=== PATIENT | male | born 1955 | race Hispanic/Latino ===

== ENCOUNTER → 2020-06-17 | Day surgery (SDC) | payer OTHER ==
[2020-06-11 10:43] LABS: HEMATOCRIT 42.3 % (38.2-49.6); HEMOGLOBIN 14.6 g/dL (14.0-18.0)
[2020-06-11 11:06] LABS: ANION GAP 12.4 mmol/L (8-16); BLOOD UREA NITROGEN 6 mg/dL (7-26); BUN/CREATININE RATIO 7 (6-25); CALCIUM 9.5 mg/dL (8.4-10.2); CARBON DIOXIDE 28 mmol/L (22-29); CHLORIDE 105 mmol/L (98-107); CREATININE, SERUM 0.83 mg/dL (0.72-1.25); EST GLOMERULAR FILTRATION RATE > 60 ML/MIN (60-); GLUCOSE 110 mg/dL (74-118); POTASSIUM 4.4 mmol/L (3.5-5.1); SODIUM 141 mmol/L (136-145)
[~2020-06-17] MED LIST: BALANCED SALT SOLN (OPTH) 15 ML BTL IO ONE; BUPIVACAINE HC 0.75% PF 10ML VIAL INJ ONE; CHONDR SU A NA/HYALUR SOD 1 EACH KIT IO ONE; CYCLOPENTOLATE HCL 2% OPTH SOLN 2 ML BTL OP ONE; EPINEPHRINE HCL 1:1000 1ML 1 MG/ML AMP ONE; GATIFLOXACIN(OPTH) 5 ML LIQD ONE; LIDOCAINE 2% /EPINEPHRINE 20 ML SDV INJ ONE; LIDOCAINE HCL 2% LOCAL INJ 5 ML SDV VIAL INJ ONE; LIDOCAINE HCL-PF 4% 40 MG/1 ML 5ML AMP ONE; LISINOPRIL2.5 MG PO; METFORMIN HCL850 MG PO; PHENYLEPHRINE HCL 2 ML DROPS ONE; PILOCARPINE HCL(OPTH) 15 ML LIQD ONE; POVIDONE IODINE 5% (OPTH) 30 ML BTL ONE; PROPOFOL IV EMULSION 10 MG/ML 20 ML VIAL ONE; TOBRAMYCIN/DEXAMETHASONE(OPTH) 3.5 GM TUBE ONE
[2020-06-17 10:45] VITALS: BP 138/80
== END | disposition home or self-care (01) ==
LOC: OR 05:53
PROVIDERS: ATTEND Ophthalmology
DX: H25.11 Age-related nuclear cataract, right eye (principal); E11.9 Type 2 diabetes mellitus without complications; I10 Essential (primary) hypertension; Z01.810 Encounter for preprocedural cardiovascular examination; Z01.812 Encounter for preprocedural laboratory examination; Z11.59 Encounter for screening for other viral diseases; Z79.84 Long term (current) use of oral hypoglycemic drugs
CPT/HCPCS: 36415 ×2; 66982; 80048; 82948; 85014; 85018; 93005; J0171; J2001 ×2; J2704; U0002; V2632

== ENCOUNTER → 2020-08-12 | Day surgery (SDC) | payer OTHER ==
[2020-08-09 09:39] LABS: HEMATOCRIT 44.1 % (38.2-49.6); HEMOGLOBIN 15.2 g/dL (14.0-18.0)
[2020-08-09 09:57] LABS: ANION GAP 13.9 mmol/L (8-16); BLOOD UREA NITROGEN 7 mg/dL (7-26); BUN/CREATININE RATIO 9 (6-25); CALCIUM 9.3 mg/dL (8.4-10.2); CARBON DIOXIDE 25 mmol/L (22-29); CHLORIDE 105 mmol/L (98-107); CREATININE, SERUM 0.79 mg/dL (0.72-1.25); EST GLOMERULAR FILTRATION RATE > 60 ML/MIN (60-); GLUCOSE 96 mg/dL (74-118); POTASSIUM 3.9 mmol/L (3.5-5.1); SODIUM 140 mmol/L (136-145)
[~2020-08-12] MED LIST changes: -CHONDR SU A NA/HYALUR SOD 1 EACH KIT IO ONE; +MIDAZOLAM HCL 2 MG/2 ML VIAL ONE
[2020-08-12 12:26] VITALS: BP 126/73
--- NOTE | 2020-08-12 19:43 | Operative Report ---
DATE OF PROCEDURE: 08/12/2020 SURGEON: Jadiel Arias MD PREOPERATIVE DIAGNOSIS: Dense cataract, left eye. POSTOPERATIVE DIAGNOSIS: Dense cataract, left eye. PROCEDURES: Phacoemulsification of cataract, left eye with insertion of foldable posterior chamber lens into ciliary sulcus, anterior vitrectomy. ANESTHESIOLOGIST: Dr. Carrasco. ANESTHESIA: Local Versed and Diprivan. PROCEDURE IN DETAIL: The patient was brought to [facility] as an outpatient and dilated with 1% cyclogyl and 2.5% [place]-Synephrine. An intravenous cannula with Ringers lactate was started in preop. The patient was taken to the surgical suite. Then, 1-2 mg of Versed and Diprivan were given intravenously. After adequate sedation, a 50% mixture of 2% Xylocaine with epinephrine and 0.75% Marcaine was given as a retrobulbar block. retrobulbar anesthesia and akinesia were obtained. The patient was then prepared, prepped and draped in a sterile manner. A drop of 5% Betadine was placed in the operative eye, and after the prep, the eye was irrigated with balanced salt solution. A lid speculum was placed in between the lids covering the lid margins well. The eye was irrigated copiously with balanced salt solution. Next, a 3 mm superior conjunctival peritomy was performed with hemostasis being maintained at all times with electrocautery. A 3 mm groove with a 64 chinik was made 2 mm posterior to the surgical limbus. A 2.4 mm crescent was used to dissect the limbal tunnel and declared cornea. The sharp MVR blade was used to make a paracentesis into the anterior chamber through the clear cornea. At this time, Shugarcaine was instilled in the anterior chamber. A 2.4 mm keratome was used to enter through the limbal tunnel. VisionBlue was placed in the eye for a minute to stain the anterior capsule to be able to perform an adequate capsulorhexis. Viscoat was then used to maintain the anterior chamber at all times. A continuous tear curvilinear capsulorhexis was performed with a 26 gauge needle and Utrata forceps. Superior cortex was irrigated with a Binkhorst cannula at 12 o'clock position, and a 25 gauge irrigating cannula was used for hydrodissection of the cortex from the posterior capsule. Then, hydrodelineation was performed isolating the central nucleus. At this time, the nucleus could rotate freely within the capsular bag. The phacoemulsification tip was inserted in the eye and a phaco was performed in a [id number] technique. When 90% of the nucleus was removed, a posterior capsule rent was suspected inferotemporally. All remaining nuclear material was removed. Viscoat was injected through the paracentesis site and the phaco tip was removed. An anterior vitrectomy was performed removing all vitreous drainage in the anterior chamber. At this time, the paracentesis site at the 2 and 10 o'clock positions were sutured with interrupted 10-0 nylon suture. The suture was removed at the 12 o'clock position. After the MN60 21 diopter lens was inspected, it was placed into the correct sand caster apprentice and injected into the anterior chamber with the haptics going into the ciliary sulcus. The superior haptic was then rotated in position to the anterior capsule into the ciliary sulcus superiorly. A 10-0 nylon cross suture was placed at the 12 o'clock position. The eye was instilled with balanced salt solution at this time. The intraocular lens was central in the ciliary sulcus with a good reflex. No vitreous drains were noted. Miostat was instilled in the eye. The eye was closed. The wounds were checked with Weck-Brenda and noted to be watertight. The conjunctiva was closed Weck-Brenda at the 12 o'clock position. Pilocarpine 2%, gatifloxacin drops, and Tobradex ointment was instilled into the operative eye. Sterile patch and operative shield were applied. The patient tolerated the procedure well and was returned to the recovery room in stable condition, and placed in a sitting position. MD STORM Gay/MARIE /[id number]
== END | disposition home or self-care (01) ==
LOC: OR 07:19
PROVIDERS: ATTEND Ophthalmology
DX: H25.12 Age-related nuclear cataract, left eye (principal); H25.89 Other age-related cataract; E11.9 Type 2 diabetes mellitus without complications; I10 Essential (primary) hypertension; Z01.812 Encounter for preprocedural laboratory examination; Z11.59 Encounter for screening for other viral diseases; Z79.84 Long term (current) use of oral hypoglycemic drugs
CPT/HCPCS: 36415 ×2; 66982; 67005; 80048; 82948; 85014; 85018; J0171; J2001 ×2; J2250; J2704; U0002; V2632